=== PATIENT | female | born 1990 | race Hispanic/Latino ===

== ENCOUNTER 2018-09-02 16:27 | Emergency (ER) | payer MEDICAID, OTHER ==
[2018-09-02 16:42] VITALS: TEMP 98.6; O2SAT 98
--- NOTE | 2018-09-02 17:07 | ED PDOC ---
Arrival/HPI <Verónica James PA-C - Last Filed: 09/04/18 16:27> - General Historian: Patient - History of Present Illness Narrative History of Present Illness (Text): 09/02/18 17:04 28 year old female, whose past medical history includes appendectomy, , and is A1, who presents to the ED complaining of suprapubic abdominal pain x couple weeks. Patient describes pain as squeezing. Patient states her LKMP was 04/27/18. Patient denies any fever, chills, vomiting, diarrhea, vaginal bleeding, vainal discharge, or any other complaints. Time/Duration: < month Symptom Onset: Gradual Symptom Course: Unchanged Activities at Onset: Light Context: Home <Justin Ross - Last Filed: 09/04/18 21:05> - General Chief Complaint: Female Genitourinary Time Seen by Provider: 09/02/18 16:54 Past Medical History - Provider Review Nursing Documentation Reviewed: Yes - Psychiatric Hx Substance Use: No - Surgical History Hx Appendectomy: Yes Hx Section: Yes <Justin Ross - Last Filed: 09/04/18 21:05> Family/Social History - Physician Review Nursing Documentation Reviewed: Yes Family/Social History: Unknown Family HX Smoking Status: Light Smoker < 10 Cigarettes Daily Hx Alcohol Use: No Hx Substance Use: No <Justin Ross - Last Filed: 09/04/18 21:05> Allergies/Home Meds <Verónica James PA-C - Last Filed: 09/04/18 16:27> <Justin Ross - Last Filed: 09/04/18 21:05> Allergies/Adverse Reactions: Allergies Penicillins Allergy (Verified 09/02/18 16:35) ANAPHYLAXIS Home Medications: Home Meds Medication Instructions Recorded Confirmed Vit No.78/Iron/FA 1 tab PO DAILY 09/02/18 09/02/18 [Prenatabs FA] Review of Systems - Physician Review All systems were reviewed & negative as marked: Yes - Review of Systems Constitutional: Normal Eyes: Normal ENT: Normal. absent: Rhinorrhea Respiratory: Normal. absent: SOB Cardiovascular: Normal. absent: Chest Pain Gastrointestinal: Abdominal Pain (suprapubic abdominal apin). absent: Diarrhea, Nausea, Vomiting Genitourinary Female: Normal. absent: Dysuria, Frequency Musculoskeletal: Normal. absent: Back Pain, Neck Pain Skin: Normal. absent: Rash Neurological: Normal. absent: Headache, Dizziness Endocrine: Normal Hemo/Lymphatic: Normal Psychiatric: Normal <Justin Ross - Last Filed: 09/04/18 21:05> Physical Exam Vital Signs Temp Pulse Resp BP Pulse Ox 09/02/18 20:00 72 16 116/63 09/02/18 16:36 98.6 F 89 18 100/58 L 98 <Verónica James PA-C - Last Filed: 09/04/18 16:27> Vital Signs Reviewed: Yes Vital Signs Temp Pulse Resp BP Pulse Ox 09/02/18 16:36 98.6 F 89 18 100/58 L 98 Temperature: Afebrile Blood Pressure: Normal Pulse: Regular Respiratory Rate: Normal Appearance: Positive for: Well-Appearing, Non-Toxic, Comfortable Pain Distress: None Mental Status: Positive for: Alert and Oriented X 3 - Systems Exam Head: Present: Atraumatic, Normocephalic Pupils: Present: PERRL Extroacular Muscles: Present: EOMI Conjunctiva: Present: Normal Mouth: Present: Moist Mucous Membranes Neck: Present: Normal Range of Motion Respiratory/Chest: Present: Clear to Auscultation, Good Air Exchange. No: Respiratory Distress, Accessory Muscle Use Cardiovascular: Present: Regular Rate and Rhythm, Normal S1, S2. No: Murmurs Abdomen: Present: Tenderness (suprapubic tenderness). No: Distention, Peritoneal Signs Back: Present: Normal Inspection Upper Extremity: Present: Normal Inspection. No: Cyanosis, Edema Lower Extremity: Present: Normal Inspection. No: Edema Neurological: Present: GCS=15, CN II-XII Intact, Speech Normal Skin: Present: Warm, Dry, Normal Color. No: Rashes Psychiatric: Present: Alert, Oriented x 3, Normal Insight, Normal Concentration <Justin Ross - Last Filed: 09/04/18 21:05> Medical Decision Making - Lab Interpretations Microbiology Results: Microbiology Results 09/02/18 16:50 Urine Urine Culture - Final Escherichia Coli Lab Results: 09/02/18 17:30 09/02/18 17:30 Lab Results 09/02/18 18:50: Blood Type Confirm B POSITIVE 09/02/18 17:45: Blood Type B POSITIVE, Antibody Screen Negative, BBK History Checked No verified bt 09/02/18 17:30: Beta HCG, Quant 38950.00 H 09/02/18 17:30: Sodium 136, Potassium 4.0, Chloride 105, Carbon Dioxide 23, Anion Gap 12, BUN 9, Creatinine 0.5 L, Est GFR ( Amer) > 60, Est GFR (Non-Af Amer) > 60, Random Glucose 95, Calcium 9.0, Total Bilirubin 0.2, AST 18, ALT 20, Alkaline Phosphatase 57, Total Protein 7.1, Albumin 3.9, Globulin 3.2, Albumin/Globulin Ratio 1.2 09/02/18 17:30: WBC 10.7, RBC 3.84, Hgb 11.3 L, Hct 32.7 L, MCV 85.2, MCH 29.4, MCHC 34.6, RDW 13.0, Plt Count 213, MPV 9.1, Gran % 75.9 H, Lymph % (Auto) 17.4 L, [place] % (Auto) 3.0, Eos % (Auto) 3.5, Baso % (Auto) 0.2, Gran # 8.12 H, Lymph # (Auto) 1.9, [place] # (Auto) 0.3, Eos # (Auto) 0.4, Baso # (Auto) 0.02 09/02/18 16:50: Urine Color Yellow, Urine Appearance Clear, Urine pH 7.0, Ur Specific Pearce <= 1.005, Urine Protein Negative, Urine Glucose (UA) Negative, Urine Ketones Negative, Urine Blood Trace-intact H, Urine Nitrate Negative, Urine Bilirubin Negative, Urine Urobilinogen 0.2, Ur Leukocyte Esterase Negative, Urine RBC 1 - 3, Urine WBC 1 - 3, Ur Epithelial Cells 4 - 5, Urine Bacteria Few - RAD Interpretation Radiology Orders: 09/02/18 17:08 AGE [US] Stat - Medication Orders Current Medication Orders: Discontinued Medications Acetaminophen (Tylenol 325mg Tab) 650 mg PO Q4 PRN PRN Reason: Fever >100.4 F Last Admin: 09/02/18 17:53 Dose: 650 mg MAR Pain/Vitals Document 09/02/18 17:53 KV (Rec: 09/02/18 17:55 [place] [facility] [id number] Pain Reassessment Is This A Pain ReAssessment? Yes Sleep Is patient sleeping during reassessment? No Presence of Pain Presence of Pain No Pain Scale Used Protocol: PSCALES Pain Scale Used Numeric Location Intensity 0 Scale Used Numeric <Verónica James PA-C - Last Filed: 09/04/18 16:27> ED Course and Treatment: 09/02/18 17:10 Impression: 28 year old female presents to the ED complaining of suprapubic abdominal pain x couple weeks. Plan: -- Labs -- Transvaginal US -- UA -- Urine Culture -- Tylenol Progress Notes: <Justin Ross - Last Filed: 09/04/18 21:05> - Scribe Statement The provider has reviewed the documentation as recorded by the Scribe Beatriz Zuniga All medical record entries made by the Scribe were at my direction and personally dictated by me. I have reviewed the chart and agree that the record accurately reflects my personal performance of the history, physical exam, medical decision making, and the department course for this patient. I have also personally directed, reviewed, and agree with the discharge instructions and disposition. <Justin Ross - Last Filed: 09/04/18 21:05> Disposition/Present on Arrival - Notes Notes (Text): 09/04/18 16:27 Urine cx shows : +E coli sensitive to macrobid. Pt called, notified of results and Rx was sent to her preferred pharmacy. Advised to f/u with diagnostic sales specialist regarding urine results. Pt verbalize understanding of information and instructions give. <Verónica James PA-C - Last Filed: 09/04/18 16:27> - Present on Arrival Any Indicators Present on Arrival: No History of DVT/PE: No History of Uncontrolled Diabetes: No Urinary Catheter: No History of Decub. Ulcer: No History Surgical Site Infection Following: None - Disposition Have Diagnosis and Disposition been Completed?: Yes Disposition Time: 16:36 Patient Plan: Discharge <Justin Ross - Last Filed: 09/04/18 21:05> - Disposition Diagnosis: Abdominal pain during intrauterine Disposition: HOME/ ROUTINE Condition: GOOD Discharge Instructions (ExitCare): Threatened Miscarriage, Acute Abdomen (Belly Pain) Additional Instructions: Please keep bedrest, pelvic rest, follow up with [facility] in a week Prescriptions: Nitrofurantoin Macrocrystals [Macrobid] 100 mg PO BID #20 cap Referrals: Irene Artis MD [Medical Doctor] - Follow up with primary Forms: [employer] ([place]akut)
[2018-09-02 17:38] LABS: URINE APPEARANCE CLEAR (CLEAR); URINE BILIRUBIN NEGATIVE (NEGATIVE); URINE BLOOD TRACE-INTACT (NEGATIVE); URINE COLOR YELLOW (YELLOW); URINE GLUCOSE (UA) NEGATIVE (NEGATIVE); URINE LEUKOCYTE ESTERASE NEGATIVE Leu/uL (NEGATIVE); URINE PROTEIN NEGATIVE mg/dL (<30 mg/dL); URINE UROBILINOGEN 0.2 E.U./dL (<1 E.U./dL)
[2018-09-02 17:45] LABS: URINE BACTERIA FEW (NEG)
[2018-09-02 17:53] LABS: BASO # 0.02 K/mm3 (0.0-2.0); BASO % 0.2 % (0.0-3.0); EOS # 0.4 (0.0-0.7); EOS % 3.5 % (1.5-5.0); GRAN # 8.12 (1.4-6.5); GRAN % 75.9 % (50.0-68.0); HEMOGLOBIN 11.3 g/dL (12.0-16.0); LYMPH # 1.9 (1.2-3.4); LYMPH % 17.4 % (22.0-35.0); MEAN CELL VOLUME 85.2 fl (80.0-105.0); MEAN CORPUSCULAR HEMOGLOBIN 29.4 pg (25.0-35.0); MEAN CORPUSCULAR HGB CONC 34.6 g/dl (31.0-37.0); MEAN PLATELET VOLUME 9.1 fl (7.0-11.0); MONO # 0.3 (0.1-0.6); RBC 3.84 10^6/uL (3.5-6.1); WHITE BLOOD COUNT 10.7 10^3/uL (4.5-11.0)
[2018-09-02 18:01] LABS: ALB/GLOB RATIO 1.2 (1.1-1.8); ALBUMIN 3.9 g/dL (3.0-4.8); ALT/SGPT 20 U/L (7-56); AST/SGOT 18 U/L (14-36); BLOOD UREA NITROGEN 9 mg/dL (7-21); GFR NON-AFRICAN AMERICAN > 60
[2018-09-02 20:03] VITALS: BP 116/63; PULSE 72; RESP 16
--- NOTE | 2018-09-03 14:18 | US ---
Date of service: 09/02/2018 PROCEDURE: Limited ultrasound HISTORY: r/o ectopic COMPARISON: None TECHNIQUE: Standard protocol for this study/examination. FINDINGS: Cephalic presentation. Posterior placenta. No evidence of abruption or previa Gestational age derived from LMP 18 weeks 2 days. [place] 02/01/2021. Gestational age derived from the following biometric parameters 15 weeks 3 days. [place]NE 02[birth year]21/2021 Biparietal diameter 2.88 cm Head circumference 11.39 cm Abdominal circumference 9.30 cm Femur length 1.88 cm Estimated weight 126.6 g Calculated cardiac rate 144 beats per min. Closed cervix measuring 3.11 cm IMPRESSION: Fifteen weeks 3 days live intrauterine gestation. Concordant findings (preliminary report) provided by JOSUE BROTHERS.
== END 2018-09-02 20:00 | disposition home or self-care (01) ==
LOC: ED 16:27
DX: O26.92 Pregnancy related conditions, unspecified, second trimester (principal); R10.9 Unspecified abdominal pain; Z3A.15 15 weeks gestation of pregnancy